=== PATIENT | female | born 1955 | race Caucasian/White ===

== ENCOUNTER 2018-03-12 03:32 | Inpatient (IN) | payer OTHER ==
[2018-03-12] MEDS ORDERED: morphine 2 MG INJ IV (04:30)
[2018-03-12] MEDS ORDERED: NITROGLYCERIN (SL) 0.4 MG TAB SL (04:30)
[2018-03-12] MEDS ORDERED: HYDROCODONE/APAP (5/325) TAB PO (06:00)
[2018-03-12] MEDS: HEPARIN 5,000 UNIT/0.5 ML VIAL SC (08:33)
[2018-03-12] MEDS: DICLOFENAC (EC) 25 MG TAB PO ×2 (08:34→12:30)
[2018-03-12] MEDS: SPIRONOLACTONE 25 MG TAB PO (08:34)
[2018-03-12] MEDS: LISINOPRIL 5 MG TAB PO (08:34)
[2018-03-12] MEDS: FUROSEMIDE 20 MG TAB PO (08:35)
[2018-03-12] MEDS: ASPIRIN (EC) 81 MG TAB PO (08:35)
[2018-03-12 08:53] LABS: ADD MAN DIFF? NO
[2018-03-12 08:57] LABS: WHITE BLOOD COUNT 8.1 10^3/ul (4.8-10.8)
[2018-03-12 08:57] LABS: ABNORMAL IP MESSAGE 1; BASOPHIL # 0.1 10^3/ul (0.0-0.1); BASOPHILS % 0.7 % (0.0-2.0); EOSINOPHILS # 0.1 10^3/ul (0.0-0.5); EOSINOPHILS % 1.4 % (0.0-7.0); HEMATOCRIT 39.4 % (37.0-47.0); HEMOGLOBIN 13.1 g/dl (12.0-16.0); LYMPHOCYTES # 2.2 10^3/ul (0.8-2.9); LYMPHOCYTES % 26.9 % (15.0-51.0); MEAN CORPUSCULAR HGB CONC 33.2 g/dl (32.0-37.0); MEAN CORPUSCULAR VOLUME 93.4 fl (82.0-101.0); MEAN PLATELET VOLUME 13.4 fl (7.4-10.4); MONOCYTE # 0.6 10^3/ul (0.3-0.9); MONOCYTES % 7.6 % (0.0-11.0); NEUTROPHIL # 5.1 10^3/ul (1.6-7.5); NEUTROPHILS % 63.2 % (39.0-77.0); PLATELET COUNT 151 10^3/UL (140-415); RED BLOOD COUNT 4.22 10^6/ul (4.20-5.40); RED CELL DISTRIBUTION WIDTH 14.4 % (11.5-14.5)
[2018-03-12 09:06] LABS: HEMOGLOBIN A1C 6.1 % (0-5.9)
[2018-03-12 09:08] LABS: POSITIVE DIFF @See below
[2018-03-12 09:13] LABS: ALANINE AMINOTRANSFERASE 32 IU/L (13-69); ALBUMIN 3.6 g/dl (3.3-4.9); ALKALINE PHOSPHATASE 77 IU/L (42-121); ANION GAP 5 (8-16); ASPARTATE AMINO TRANSFERASE 18 IU/L (15-46); BILIRUBIN,INDIRECT 0.8 mg/dl (0-1.1); BILIRUBIN,TOTAL 0.8 mg/dl (0.2-1.3); BLOOD UREA NITROGEN 15 mg/dl (7-20); CALCIUM 8.9 mg/dl (8.4-10.2); CARBON DIOXIDE 30 mmol/L (21-31); CHLORIDE 109 mmol/L (97-110); CHOL/HDL RATIO 2.6 RATIO; CHOLESTEROL 169 mg/dl (100-200); CREATININE 0.56 mg/dl (0.44-1.00); GLUCOSE 98 mg/dl (70-220); HDL CHOLESTEROL 63 mg/dl (35-98); LDL CHOLESTEROL,CALCULATED 80 mg/dl; MAGNESIUM 2.1 mg/dl (1.7-2.5); PHOSPHORUS 3.2 mg/dl (2.5-4.9); POTASSIUM 4.2 mmol/L (3.5-5.1); SODIUM 140 mmol/L (135-144); TOTAL PROTEIN 6.6 g/dl (6.1-8.1); TRIGLYCERIDES 128 mg/dl (0-149)
[2018-03-12 09:15] LABS: CREATINE KINASE 133 IU/L (23-200)
[2018-03-12 09:25] LABS: TROPONIN-I < 0.010 ng/ml (0.000-0.120)
[2018-03-12 09:26] LABS: CK-MB 1.32 ng/ml (0.0-2.4)
[2018-03-12 09:53] LABS: TROPONIN-I < 0.010 ng/ml (0.000-0.120)
[2018-03-12 12:19] LABS: CREATINE KINASE 128 IU/L (23-200)
[2018-03-12 12:32] LABS: CK INDEX 0.9; CK-MB 1.13 ng/ml (0.0-2.4)
[2018-03-12 12:33] LABS: TROPONIN-I < 0.010 ng/ml (0.000-0.120)
[2018-03-12] MEDS ORDERED: morphine LIQ (10 MG/5 ML) CUP PO (18:00)
[2018-03-13] MEDS ORDERED: PANTOPRAZOLE (EC) 40 MG TAB PO (06:00)
== END 2018-03-12 19:20 | disposition home or self-care (01) | DRG 313 ==
LOC: MS4 03:32
DX: R07.9 Chest pain, unspecified (principal); I10 Essential (primary) hypertension; J45.909 Unspecified asthma, uncomplicated; K21.9 Gastro-esophageal reflux disease without esophagitis
CPT/HCPCS: 80053; 80061; 82550; 82553; 83036; 83735; 84100; 84443; 84484; 85025; 93005; 93306